=== PATIENT | female | born 1945 | race Caucasian/White ===

== ENCOUNTER → 2021-05-06 | Outpatient (CLI) | payer BC, MEDICARE ==
[2014-12-27 17:10] VITALS: BP 119/61
[~2021-05-06] MED LIST: TRAM50TA PO
--- NOTE | 2021-05-06 16:17 | KCIC ---
EXAM: Dual energy x-ray absorptiometry (DEXA). HISTORY: Postmenopausal. COMPARISON: None. TECHNIQUE: Dual energy x-ray absorptiometry of the lumbar spine and left hip was performed. Calculat ion of bone mineral density based on standard deviations above or below the expected young adult norm al value (T-score) was completed. FINDINGS: LUMBAR SPINE: The AVG BMD OF the L1-L4 region = 1.034 gm/cm2, T-score = -0.1, Z-score = 2.3. Findings are consistent with . Significant degenerative changes are noted in the lumbar spine. This can artificially elevate the ca lculation of bone density. Femoral Neck: The BMD of the left femoral neck = 0.702 gm/cm2, T-score = -2.0, Z-score = -0.1. The Findings are consistent with osteopenia. IMPRESSION: Findings demonstrate osteopenia in the left femoral neck and normal bone density in the spine. Electronically signed by: Maikel Mars MD (05/06/2021 4:14 PM) [id number]
== END ==
LOC: KCIC DEXA 12:19
PROVIDERS: ATTEND Family Medicine
DX: M85.88 Other specified disorders of bone density and structure, other site (principal); M47.816 Spondylosis without myelopathy or radiculopathy, lumbar region; N95.8 Other specified menopausal and perimenopausal disorders; Z78.0 Asymptomatic menopausal state
CPT/HCPCS: 77080